=== PATIENT | male | born 1945 | race Caucasian/White ===

== ENCOUNTER 2022-02-09 17:42 | Inpatient (IN) ==
[2022-02-09] MEDS ORDERED: Iodixanol (CONTRAST) 320 MG/ML 100 ML SDV IV ONE (18:01)
[2022-02-09 18:02] LABS: Hematocrit 39 % (42-52); Hemoglobin 13.7 g/dL (14.0-18.0); Mean Corpuscular HGB Conc 35 g/dL (31-36); Mean Corpuscular Hemoglobin 32 pg (27-31); Mean Corpuscular Volume 89 fL (80-94); Red Blood Count 4.33 10^6 /uL (4.18-5.48); Red Cell Distribution Width 13 % (10-15); White Blood Count 5.7 10^3/uL (3.5-10.8)
[2022-02-09] MEDS ORDERED: levETIRAcetam IV 1,500 MG in NS 0.9% 100 ml BAG 100 ML IVPB ONE (18:22)
[2022-02-09 18:35] LABS: ABS Lymphocytes 1.9 10^3/ul (1.0-4.8); ABS Monocytes 0.9 10^3/ul (0-0.8); ABS Neutrophils 2.9 10^3/ul (1.5-7.7); Eosinophil % 0.8 %; Lymphocyte % 33.1 %; Mean Platelet Volume 8.2 fL (7.4-10.4); Nucleated Red Blood Cells % 0.1; Platelet Count 80 10^3/uL (150-450)
[2022-02-09 18:36] LABS: Activated Partial Thrombo Time 25.7 seconds (26.0-38.0); INR 1.1 (0.89-1.11)
[2022-02-09 18:52] LABS: ALT 25 U/L (7-52); AST 32 U/L (13-39); Albumin 4.4 g/dL (3.2-5.2); Albumin/Globulin Ratio 1.9 (1-3); Alcohol, S < 13 mg/dL (<13); Alkaline Phosphatase 40 U/L (35-149); Anion Gap 19 mmol/L (2-11); Blood Urea Nitrogen 12 mg/dL (6-24); CO2 Carbon Dioxide 16 mmol/L (22-32); Calcium 9.2 mg/dL (8.6-10.3); Chloride 94 mmol/L (101-111); Cholesterol 118 mg/dL; Globulin 2.3 g/dL (2-4); Glucose 95 mg/dL (70-100); HDL Cholesterol 55.5 mg/dL; LDL Cholesterol 44 mg/dL; Potassium 4.3 mmol/L (3.5-5.0); Sodium 129 mmol/L (135-145); Total Protein 6.7 g/dL (6.4-8.9); Triglycerides 94 mg/dL; eGFR CKD-EPI 76.1 (>60)
[2022-02-10] MEDS ORDERED: NS 0.9% 1000 ml BAG 1,000 ML IV SCH (01:00)
[2022-02-10] MEDS ORDERED: levETIRAcetam 1000MG IVPREMIX 1,000 MG/100 ML BAG IVPB SCH (02:00)
[2022-02-10] MEDS ORDERED: Enoxaparin 40 MG/0.4 ML SYR SUBCUT SCH (03:00)
[2022-02-10 05:26] LABS: ABS Monocytes 0.7 10^3/ul (0-0.8); ABS Neutrophils 4.8 10^3/ul (1.5-7.7); Eosinophil % 0.2 %; Hematocrit 31 % (42-52); Hemoglobin 11.1 g/dL (14.0-18.0); Lymphocyte % 15.3 %; Mean Corpuscular HGB Conc 37 g/dL (31-36); Mean Corpuscular Hemoglobin 33 pg (27-31); Mean Corpuscular Volume 89 fL (80-94); Mean Platelet Volume 7.9 fL (7.4-10.4); Platelet Count 52 10^3/uL (150-450); Red Blood Count 3.43 10^6 /uL (4.18-5.48); Red Cell Distribution Width 13 % (10-15); White Blood Count 6.5 10^3/uL (3.5-10.8)
[2022-02-10 05:59] LABS: Calcium 8.3 mg/dL (8.6-10.3); Magnesium 1.8 mg/dL (1.9-2.7); Potassium 3.4 mmol/L (3.5-5.0); eGFR CKD-EPI 92.4 (>60)
[2022-02-10] MEDS ORDERED: Magnesium Sulfate IV 3 GM in NS 0.9% 100 ml BAG 100 ML IVPB ONE (07:55)
[2022-02-10] MEDS ORDERED: CMC:Ranolazine 500 mg TAB ER (NF) PO SCH (09:00)
[2022-02-10] MEDS: KCL 20 MEQ/100 ML IVPREMIX 20 MEQ/100 ML BAG IV SCH ×2 (09:02→10:39)
[2022-02-10] MEDS ORDERED: Potassium Chlor 20 meq TAB.ER PO ONE (10:33)
[2022-02-10 11:46] VITALS: BP 129/67
== END 2022-02-10 14:21 | disposition home or self-care (01) | DRG 53 ==
LOC: ED 17:42 → EDHOLD 02-10 00:44 → OBSVTOIN 02-10 00:44 → SUATTDRO 02-10 00:44 → INTOOBSV 02-10 00:44 → EDHOLD 02-10 11:46
PROVIDERS: ADMIT Hospitalist; ATTEND Student in an Organized Health Care Education/Training Program